=== PATIENT | male | born 1960 | race Caucasian/White ===

== ENCOUNTER 2018-08-08 15:50 | Inpatient (IN) ==
[2018-08-08] MEDS ORDERED: Aspirin 81 MG TAB.CHEW PO ONE (16:15)
--- NOTE | 2018-08-08 16:17 | Emergency Department Note ---
Disposition Clinical Impression: Acute inferior myocardial infarction ST elevation myocardial infarction (STEMI) Qualifiers: Involved coronary artery: LAD coronary artery Qualified Code(s): I21.02 - ST elevation (STEMI) myocardial infarction involving left anterior descending coronary artery Chest pain Qualifiers: Chest pain type: other chest pain Qualified Code(s): R07.89 - Other chest pain; R07.8 - Other chest pain Disposition: Admitted As Inpatient Condition: Fair Referrals: NONE,PCP [Primary Care Provider] - Forms: ED Satisfaction Letter Time of Disposition: 18:43 General Adult HPI - General Chief complaint: ED Chest Pain Stated complaint: Needs Pain Meds Time Seen by Provider: 08/08/18 16:11 Source: patient Limitations: no limitations Nursing Notes Reviewed: Yes Vital Signs Reviewed: Yes - History of Present Illness HPI Narrative: Male patient presenting to the emergency department complaining of jaw pain and chest pain. 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 He has a graft to this area. He is reporting that he has chest pain as well but he states that this is from his jaw pain. He states that this is the normal pain that he gets. He denies any shortness of breath. Patient reports that he has been out of his morphine because he got dismissed from the pain clinic. He states that he a ccidentally took an oxycodone instead of his morphine and tested positive for this. We did do a past Rx on the patient. It does appear as if he is supposed to have pain medication through August 16 or . He states he is out of this. He denies any shortness of breath. He reports that he thinks his pain is from his jaw. Patient denies any cardiac history. He does not take any blood thinners. He is a current smoker and does not have a history of high blood pressure. However he does have a history of a sister who had an [place] and had to be "shocked several times." He states that this happened a couple years ago and she is younger than he is. Pain Scale: 10 - Related Data Allergies Allergy/AdvReac Type Severity Reaction Status Date / Time No Known Allergies Allergy Verified 08/08/18 16:43 All systems ED: reviewed and negative except as stated. Review of Systems: As Per HPI Constitutional: Denies: fever, chills Eyes: Reports: other (Jaw pain. Has had this for 1 week.) ENT ED: Denies: congestion Cardiovascular: Reports: chest pain (One-week). Denies: palpitations, dyspnea on exertion, edema Respiratory: Denies: cough, dyspnea Gastrointestinal: Denies: abdominal pain, nausea, vomiting, diarrhea Genitourinary: Denies: urgency, dysuria, frequency, hematuria Musculoskeletal: Denies: back pain, neck pain Past Medical History - Past Medical History Attestation: Yes The following information was validated with the patient. Source: patient Medical history: Reports: cancer Psychiatric history: Reports: no psych history - Social History Smoking Status: Current every day smoker Alcohol use: Reports: none Drug use: Reports: none Physical Exam - General Limitations: no limitations General appearance: alert, in no apparent distress - Head Head exam: atraumatic, normocephalic, normal inspection - Eye Eye exam: Present: normal appearance, PERRL, EOMI - ENT ENT exam: mucous membranes moist, other (Deformity to the lower face secondary to surgery for throat cancer and partial mandible removal.) - Neck Neck exam: Present: other (Skin grafting to the throat secondary to throat cancer.) - Chest Chest inspection: Present: normal inspection, symmetric chest wall rise. Absent: tenderness - Respiratory Respiratory exam: Present: normal lung sounds bilaterally. Absent: respiratory distress, accessory muscle use - Cardiovascular Cardiovascular exam: Present: regular rate, normal rhythm, normal heart sounds - Abdominal Exam Abdominal exam: Present: soft, Non-Tender. Absent: tenderness, distention, guarding, rebound, rigidity, organomegaly - Extremities Exam Extremities exam: Present: normal inspection, full ROM, normal capillary refill. Absent: tenderness, pedal edema - Back Exam Back exam: Present: normal inspection, full ROM. Absent: tenderness - Neurological Exam Neurological exam: Present: alert, oriented X3 - Psychiatric Psychiatric exam: Present: normal affect, normal mood - Skin Skin exam: Present: warm, dry, intact, normal color Course Course Narrative: EKG was performed and patient was noted to have ST elevation in leads 23 and aVF We do not have a previous EKG to compare to. We did cause STEMI alert at that time. Patient was loaded with aspirin as well as Brilinta heparin. Dr. Hobson was contacted and is coming to bedside at this time. - Reevaluation(s) Reevaluation #1: Dr. Hobson evaluated the patient and discussed with him and they will be going to the Qa Manager. Vital Signs Temperature 98.4 F 08/08/18 15:57 Pulse Rate 80 08/08/18 15:57 Respiratory Rate 18 08/08/18 15:57 Blood Pressure 150/98 08/08/18 15:57 O2 Sat by Pulse Oximetry 97 08/08/18 15:57 Temperature 98.4 F 08/08/18 15:57 Pulse Rate 68 08/08/18 17:00 Respiratory Rate 16 08/08/18 17:00 Blood Pressure 137/87 08/08/18 17:05 O2 Sat by Pulse Oximetry 97 08/08/18 15:57 Oxygen Delivery Oxygen Delivery Room Air Medical Decision Making - Medical Records Medical records reviewed: Yes I reviewed the patient's medical records. - Lab Data Lab results reviewed: Yes I reviewed the patient's lab results. Result diagrams: 08/08/18 16:41 08/08/18 16:41 Lab Results 08/08/18 08/08/18 08/08/18 Range/Units 16:41 16:41 16:41 WBC 9.8 (4.3-11.1) K/mcL RBC 4.78 (4.19-5.50) M/mcL Hgb 14.2 (12.9-16.9) g/dL Hct 41.3 (37.5-50.1) % MCV 86.4 (83.0-100.0) fL MCH 29.7 (28.0-33.3) pg MCHC 34.4 (31.6-35.5) g/dL RDW 13.2 (11.5-14.5) % Plt Count 199 (140-400) K/mcL MPV 11.7 (9.4-12.4) fL Immature Gran % 0.2 (0-4) % Seg Neutrophils % 63.1 % Lymphocytes % 26.2 % Monocytes % 8.0 % Eosinophils % 1.4 % Basophils % 1.1 % Neutrophils # 6.2 (1.6-8.9) K/mcL Lymphocytes # 2.6 (0.6-4.6) K/mcL Monocytes # 0.8 (0.0-1.3) K/mcL Eosinophils # 0.1 (0.0-0.6) K/mcL Basophils # 0.1 (0.0-0.2) K/mcL PT 11.1 (9.4-12.1) Seconds INR 1.0 APTT 21.6 L (26.0-36.0) Seconds Sodium 138 (136-145) mEq/L Potassium 3.9 (3.5-5.1) mEq/L Chloride 104 (98-107) mEq/L Carbon Dioxide 27 (23-29) mEq/L BUN 6 (6-20) mg/dL Creatinine 1.01 (0.70-1.30) mg/dL Est GFR ( Amer) > 60 (> 60) Est GFR (Non-Af Amer) > 60 (> 60) BUN/Creatinine Ratio 6 (6-26) Glucose 71 (70-105) mg/dL Calculated Osmolality 282 (280-300) Calcium 9.5 (8.6-10.3) mg/dL Troponin I < 0.03 (< 0.04) ng/mL - Radiology Data Radiology results reviewed: Yes I reviewed the patient's radiology results. Chest X-Ray 08/08/18 16:16 IMPRESSION: Reticulonodular opacifications noted in both lungs. This may represent interstitial lung disease or possibly an atypical pneumonia. Otherwise, no acute abnormalities seen in the chest D/ / Víctor Morales MD / Víctor Morales MD Interpreting Provider: Víctor Morales MD Attestation Statement - Attestation Attestation: I, Krishna Hernandez DO, examined this patient [id number] and my medical decision-making was reviewed with Dr. Nathaly Kim, Resident Physician. I agree with the documented findings, disposition and treatment plan as described except to the extent set forth below. Please see my progress notes for details.
[2018-08-08] MEDS ORDERED: *HR* HYDROmorphone (PF) 1 MG/ML SYRINGE IVP STA (16:33)
[2018-08-08] MEDS ORDERED: *HR* Ticagrelor 90 MG TABLET PO ONE (16:34)
[2018-08-08] MEDS ORDERED: *HR* Heparin 5,000 UNIT/ML VIAL IVP ONE (16:34)
[2018-08-08] MEDS ORDERED: *HR* Heparin 5,000 UNIT/ML VIAL IVP PRN ×2 (16:34)
[2018-08-08] MEDS ORDERED: Heparin 25,000 UNIT/500 ML D5W 25,000 UNIT/500 ML BAG IVC SCH (16:45)
[2018-08-08] MEDS ORDERED: ISOVUE-370 200 ML INFUS..BTL ONE (16:56)
[2018-08-08] MEDS ORDERED: 0.9 % Sodium Chloride 1,000 ML ONE ×2 (16:56→17:14)
[2018-08-08] MEDS ORDERED: Heparin 1,000 UNITS/500 mL 500 ML ONE (16:56)
[2018-08-08] MEDS ORDERED: *HR* Heparin 10,000 UNIT/10 ML VIAL ONE (16:56)
[2018-08-08] MEDS ORDERED: Nitroglycerin 1,000 MCG/10 ML VIAL IV ONE (16:56)
--- NOTE | 2018-08-08 17:08 | Cardiology Consult Note ---
Date of Encounter: 08/08/18 Time of Encounter: 17:06 Assessment and Plan (1) Acute inferior myocardial infarction Current Visit: Yes Status: Acute Inferior UT, chest pain resolved after pain meds, will proceed with an C. R/b/a d/w patient and he agrees. Discussion w patient/family: The assessment and plan as outlined above was discussed with the patient and/or family members who expressed understanding and agreement. All questions were answered. Thank you for involving us in the care of your patient. Please call with any questions. History of Present Illness Consult date: 08/08/18 Consult reason: Chest Pain Chief complaint: Chest Pain History of present illness: Mr. Bowers is a 58 year old male smoker with no significant CRF's except for smoking here with RSCP non radiating currently resolved after pain meds in the ED. Pain started in the ED and radiates to the chest. States his chest pain curr ently resolved. R/B/A d/w patient and he agrees to proceed. Past Med Surg Social Fam HX - Past Medical History Medical history: cancer Additional medical history: Trevin MARTINES Psychiatric history: no psych history - Social History Smoking Status: Current every day smoker Alcohol use: none Drug use: none Medications and Allergies Allergy/AdvReac Type Severity Reaction Status Date / Time No Known Allergies Allergy Verified 08/08/18 16:43 All Systems Review: The remainder of the systems were reviewed and are negative Physical Examination Vital Signs, Last 4 Hours Temp Pulse Resp BP Pulse Ox 08/08/18 17:00 68 16 121/85 08/08/18 16:55 125/81 08/08/18 16:52 74 11 105/82 08/08/18 15:57 98.4 F 80 18 150/98 97 General: Conversant, No Apparent Distress HEENT: Atraumatic, Normocephaly, Mucus Membranes Moist Neck: No JVD, Normal carotid pulses Cardiac: Reg Rate and Rhythm, Normal S1 and S2, No Murmur Lungs: Normal Breath Sounds, No Wheeze, Rales, Rhonchi Neuro: Alert and responsive, No focal deficits noted Abdomen: Soft, Non-Tender Skin: No rashes noted on visualized skin Musculoskeletal: No Chest Wall Tenderness Extremities: No Clubbing, No Cyanosis, No Edema, Normal Pulses Consult Discharge Plan - Plan
[2018-08-08 17:13] LABS: Basophils # 0.1 K/mcL (0.0-0.2); Basophils % 1.1 %; Eosinophils # 0.1 K/mcL (0.0-0.6); Eosinophils % 1.4 %; Hematocrit 41.3 % (37.5-50.1); Hemoglobin 14.2 g/dL (12.9-16.9); Immature Granulocytes % 0.2 % (0-4); Lymphocytes # 2.6 K/mcL (0.6-4.6); Lymphocytes % 26.2 %; Mean Corpuscular HGB Conc 34.4 g/dL (31.6-35.5); Mean Corpuscular Hemoglobin 29.7 pg (28.0-33.3); Mean Corpuscular Volume 86.4 fL (83.0-100.0); Mean Platelet Volume 11.7 fL (9.4-12.4); Monocytes # 0.8 K/mcL (0.0-1.3); Neutrophils # 6.2 K/mcL (1.6-8.9); Platelet Count 199 K/mcL (140-400); Red Blood Count 4.78 M/mcL (4.19-5.50); Red Cell Distribution Width 13.2 % (11.5-14.5); Segmented Neutrophils % 63.1 %
[2018-08-08] MEDS ORDERED: Tirofiban 12.5 MG/250ML 12.5 MG/250 ML BAG ONE (17:14)
[2018-08-08] MEDS ORDERED: *HR* Midazolam HCl 2 MG/2 ML VIAL ONE (17:14)
[2018-08-08] MEDS ORDERED: *HR* FentaNYL (PF) 100 MCG/2 ML VIAL ONE ×2 (17:14→18:28)
[2018-08-08 17:21] LABS: Prothrombin Time 11.1 Seconds (9.4-12.1)
[2018-08-08 17:24] LABS: Activated Partial Thrombo Time 21.6 Seconds (26.0-36.0)
--- NOTE | 2018-08-08 17:24 | Emergency Department Note ---
Disposition Clinical Impression: Acute inferior myocardial infarction, Chest pain Disposition: Admitted As Inpatient Condition: Fair Referrals: NONE,PCP [Non-Partnered Physician] - Forms: ED Satisfaction Letter Time of Disposition: 17:24 General Adult HPI - General Chief complaint: ED Chest Pain Stated complaint: Needs Pain Meds Time Seen by Provider: 08/08/18 16:11 Source: patient Limitations: no limitations - History of Present Illness Pain Scale: 10 - Related Data Allergies Allergy/AdvReac Type Severity Reaction Status Date / Time No Known Allergies Allergy Verified 08/08/18 16:43 Constitutional: Denies: fever, chills Eyes: Reports: other (Jaw pain. Has had this for 1 week.) ENT ED: Denies: congestion Cardiovascular: Reports: chest pain (One-week). Denies: palpitations, dyspnea on exertion, edema Respiratory: Denies: cough, dyspnea Gastrointestinal: Denies: abdominal pain, nausea, vomiting, diarrhea Genitourinary: Denies: urgency, dysuria, frequency, hematuria Musculoskeletal: Denies: back pain, neck pain Past Medical History - Past Medical History Medical history: Reports: cancer Psychiatric history: Reports: no psych history - Social History Smoking Status: Current every day smoker Alcohol use: Reports: none Drug use: Reports: none Physical Exam - General Limitations: no limitations General appearance: alert, in no apparent distress Course Vital Signs Temperature 98.4 F 08/08/18 15:57 Pulse Rate 80 08/08/18 15:57 Respiratory Rate 18 08/08/18 15:57 Blood Pressure 150/98 08/08/18 15:57 O2 Sat by Pulse Oximetry 97 08/08/18 15:57 Temperature 98.4 F 08/08/18 15:57 Pulse Rate 68 08/08/18 17:00 Respiratory Rate 16 08/08/18 17:00 Blood Pressure 137/87 08/08/18 17:05 O2 Sat by Pulse Oximetry 97 08/08/18 15:57 Oxygen Delivery Oxygen Delivery Room Air Medical Decision Making - Lab Data Result diagrams: 08/08/18 16:41 Lab Results 08/08/18 Range/Units 16:41 WBC 9.8 (4.3-11.1) K/mcL RBC 4.78 (4.19-5.50) M/mcL Hgb 14.2 (12.9-16.9) g/dL Hct 41.3 (37.5-50.1) % MCV 86.4 (83.0-100.0) fL MCH 29.7 (28.0-33.3) pg MCHC 34.4 (31.6-35.5) g/dL RDW 13.2 (11.5-14.5) % Plt Count 199 (140-400) K/mcL MPV 11.7 (9.4-12.4) fL Immature Gran % 0.2 (0-4) % Seg Neutrophils % 63.1 % Lymphocytes % 26.2 % Monocytes % 8.0 % Eosinophils % 1.4 % Basophils % 1.1 % Neutrophils # 6.2 (1.6-8.9) K/mcL Lymphocytes # 2.6 (0.6-4.6) K/mcL Monocytes # 0.8 (0.0-1.3) K/mcL Eosinophils # 0.1 (0.0-0.6) K/mcL Basophils # 0.1 (0.0-0.2) K/mcL Attestation Statement - Attestation Attestation: I, Krishna Hernandez DO, examined this patient [id number] and my medical decision-making was reviewed with Dr. Nathaly Kim, Resident Physician. I agree with the documented findings, disposition and treatment plan as described except to the extent set forth below. Please see my progress notes for details. 58-year-old male presents emergency room with complaint of chest pain. [facility] was needs pain medication. Patient has extensive surgical history secondary to throat cancer. He was chronically on morphine immediate release tablets 30 mg and 50 mg alternating throughout the day. His [place] [employer] reporting system review shows multiple prescriptions that should carry through to the middle of August. Patient says it is out of medications at this time. He is still describing chest pain radiates up into his neck. He says it is similar to his pain is on the past but is unable to be differentiated secondary to the presenting symptoms or complaints and his chronic medical issues. Initial EKG was concerning for inferior wall myocardial infarction with ST segment elevations in leads 23 aVF. He has no visible reciprocal changes at this time. Because of this a STEMI alert was called. The forest and conservation worker Dr. Hobson reviewed the EKG and evaluated the patient the bedside. He agreed and is taking the patient to the Plasma Processing Technician for evaluation. Patient had labs completed including coagulation studies. He is currently not on any blood thinners. Chest x-ray was resulted and shows no signs of widening of the mediastinum or pneumothorax. Patient will be transferred to catheterization lab for intervention and medical management. He was given 1 dose of Dilaudid here in the emergency department that relieved his pain. Unable to differentiate between stress-induced related issues secondary to the opiate issues versus actual cardiac angina. Patient will have intervention performed admission process will be established. See detailed documentation of the physical exam, medical intervention, medical decision- making and disposition the resident physician's note. 35 minutes critical care pad the patient's treatment course at this time. Physical exam on initial presentation shows a thin appearing gentleman with surgical scars in the neck an d resection of the jaw. He has no stridor no trismus. Lungs were clear this time with expiratory wheeze noted. Otherwise stable. Heart is regular. Abdomen is soft. Extremities were normal.
[2018-08-08 17:34] LABS: Troponin I < 0.03 ng/mL (< 0.04)
[2018-08-08 17:37] LABS: BUN/Creatinine Ratio 6 (6-26); Blood Urea Nitrogen 6 mg/dL (6-20); Calcium 9.5 mg/dL (8.6-10.3); Carbon Dioxide 27 mEq/L (23-29); Chloride 104 mEq/L (98-107); Glucose 71 mg/dL (70-105); Osmolality,Calculated 282 (280-300); Potassium 3.9 mEq/L (3.5-5.1); Sodium 138 mEq/L (136-145); eGFR For Non-African Americans > 60 (> 60)
[2018-08-08] MEDS ORDERED: Tirofiban 5 MG/100 mL 5 MG/100 ML VIAL IV ONE (18:39)
--- NOTE | 2018-08-08 19:46 | Internal Med History&Physical ---
<Claudia Arriaga A - Last Filed: 08/09/18 06:39> Date of Encounter: 08/09/18 Internal Medicine - H&P: HPI Chief complaint: Chest Pain History of present illness: Mr. Bowers is a 58 year old male Internal Medicine - H&P: Meds Allergy/AdvReac Type Severity Reaction Status Date / Time No Known Allergies Allergy Verified 08/08/18 16:43 All Systems PM: A 10-system review of systems was performed and is negative for pertinent findings except as documented above in the HPI. - Constitutional Vitals: Temp Pulse Resp BP Pulse Ox 98.4 F 49 12 108/54 99 08/09/18 03:00 08/09/18 06:00 08/09/18 06:00 08/09/18 06:00 08/09/18 06:00 Internal Med - H&P Results - Labs CBC & Chem 7: 08/09/18 03:10 08/09/18 03:10 Labs: Short CBC 08/08/18 08/08/18 08/09/18 Range/Units 16:41 22:20 03:10 WBC 9.8 12.9 H 10.7 (4.3-11.1) K/mcL Hgb 14.2 13.4 12.8 L (12.9-16.9) g/dL Hct 41.3 38.0 37.9 (37.5-50.1) % Plt Count 199 191 180 (140-400) K/mcL Neutrophils # 6.2 8.1 8.2 (1.6-8.9) K/mcL BMP 08/08/18 08/08/18 08/09/18 16:41 22:20 03:10 Sodium 138 138 138 Potassium 3.9 3.8 3.8 Chloride 104 107 107 Carbon Dioxide 27 24 25 BUN 6 8 9 Creatinine 1.01 0.87 0.85 Glucose 71 118 H 121 H Calcium 9.5 8.2 L 7.9 L Cardiac Enzymes 08/08/18 08/08/18 08/09/18 Range/Units 16:41 22:20 04:15 Troponin I < 0.03 < 0.03 0.06 H* (< 0.04) ng/mL Liver Function 08/09/18 Range/Units 03:10 Total Bilirubin 0.5 (0.3-1.0) mg/dL AST 16 (13-39) Units/L ALT 11 (7-52) Units/L Alkaline Phosphatase 56 (34-104) Units/L Albumin 3.5 (3.5-5.7) g/dL - Impressions ITS Impressions Chest X-Ray 08/08/18 16:16 IMPRESSION: Reticulonodular opacifications noted in both lungs. This may represent interstitial lung disease or possibly an atypical pneumonia. Otherwise, no acute abnormalities seen in the chest D/ / Víctor Morales MD / Víctor Morales MD Interpreting Provider: Víctor Morales MD - Assessment and plan (1) Acute inferior myocardial infarction Current Visit: Yes Status: Acute (2) Throat cancer Current Visit: Yes Status: Acute (3) DVT prophylaxis Current Visit: Yes Status: Acute - Time Spent With Patient Total time spent is greater than 50% in coordination of care (as documented) at patient's floor/unit and/or counseling patient: - Attending Attestation I performed a Hx and Physical examination of the patient and discussed his management with the resident. I reviewed the rsidents note and agree with the assessment and plan of care. 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 Intial troponin was negative, but patient had EKG findings concerning for inferior wall NE. Dr. Hobson was informed who reviewed the case and patient was taken to the radiographer cardiac catheterization with findings of a RCA lesion with 65-70% occlusion. No stent was placed. Patient was doing well after arriving to the ICU. About 45 minutes after arrival, patient's blood pressure began dropping down into the 50 systolic. He became bradycardic. Patient was given 0.5 of atropine and fluid bolus. He was subsequently started on dopamine drip. Pressures gradually improved as well as heart rate. Arterial line was placed at the side of the femoral sheath. Patient reported chest pain at this time and need to have a bowel movement. Repeat EKG showed no significant changes from prior. Stat blood work was obtained. Blood pressures gradually improved and are now in the high 90s systolic. Dr. Hobson was informed. Patient stable now on 5 ml of dopamine. <Asher Pimentel - Last Filed: 08/09/18 07:05> Date of Encounter: 08/09/18 Time of Encounter: 20:00 Internal Medicine - H&P: HPI History of present illness: Mr. Bowers is a 58 year old smoker male who presented to the ED because of chest pain. In the ED patient described the chest pain as radiating to his neck. Initial workup was concerning for inferior wall NE with ST segment elevations in II, III and aVF. Patient had no reciprocal changes that time and the STEMI alert was called and patient underwent cardiac catheterization with Dr. Hobson. He was given Dilaudid in the ED and his chest pain resolved. Patient's chest x-rays were negative for any widening of mediastinum or pneumothorax. Patient is currently not on any blood thinners. Patient has a family history of heart disease in her mother's side but he is not sure what exactly was her mother's heart condition. Patient has extensive surgical histor y secondary to throat cancer and takes morphine immediate release tablets 30 mg to 50 mg alternating throughout the day. Patient's results from a cardiac catheterization tonight showed that the patient had 70% blockage in his RCA. No stent placement was recommended, Ticargrelor was started and patient was sent to ICU for further management. Past Med Surg Social Fam HX - Past Medical History Medical history: cancer Additional medical history: Jawbone CA Psychiatric history: no psych history - Social History Smoking Status: Current every day smoker Alcohol use: none Drug use: none All Systems PM: A 10-system review of systems was performed and is negative for pertinent findings except as documented above in the HPI. - Constitutional Constitutional: no fever(s) - Cardiovascular Cardiovascular ROS IM: chest pain - Respiratory Respiratory: no dyspnea - Gastrointestinal Gastrointestinal: no abdominal pain - Genitourinary Genitourinary ROS male: no difficulty urinating - Constitutional Vitals: Temp Pulse Resp BP Pulse Ox 98.4 F 68 16 137/87 97 08/08/18 15:57 08/08/18 17:00 08/08/18 17:00 08/08/18 17:05 08/08/18 15:57 Exam: Gen.: Vitals noted. No acute distress. Alert, awake and oriented * [address], place, and time, well developed, well-nourished resting comfortably in bed. Pleasant. HEENT: oropharynx clear, Normocephalic, atraumatic, MMM Neck: supple, no JVD, no lymphadenopathy, no carotid bruit. Cardiac: RRR, no murmur, +S1/S2, No BLE edema, PMI non-displaced Pulmonary: CTA bilaterally, no wheezes, rales or rhonchi, equal chest expansion, unlabored breathing Abdomen: soft, nontender, BS noted, no guarding. No organomegaly, no pulsatile masses, Skin: warm and dry, no visible lesions. Feels warm, clammy, no rashes, no lesions, no erythema MSK: ROM not assessed. no joint swelling noted, gait not assessed while in bed. Non tender calf or clubbing, no cyanosis/clubbing/ or edema Neuro: A&O, moves all extremities, no focal deficits, sensation intact Psych: Appropriate mood and behavior, normal speech Internal Med - H&P Results - Labs CBC & Chem 7: 08/09/18 03:10 08/09/18 03:10 Labs: Short CBC 08/08/18 Range/Units 16:41 WBC 9.8 (4.3-11.1) K/mcL Hgb 14.2 (12.9-16.9) g/dL Hct 41.3 (37.5-50.1) % Plt Count 199 (140-400) K/mcL Neutrophils # 6.2 (1.6-8.9) K/mcL BMP 08/08/18 16:41 Sodium 138 Potassium 3.9 Chloride 104 Carbon Dioxide 27 BUN 6 Creatinine 1.01 Glucose 71 Calcium 9.5 Cardiac Enzymes 08/08/18 Range/Units 16:41 Troponin I < 0.03 (< 0.04) ng/mL - Impressions ITS Impressions Chest X-Ray 08/08/18 16:16 IMPRESSION: Reticulonodular opacifications noted in both lungs. This may represent interstitial lung disease or possibly an atypical pneumonia. Otherwise, no acute abnormalities seen in the chest D/ / Víctor Morales MD / Víctor Morales MD Interpreting Provider: Víctor Morales MD - Assessment and plan (1) Acute inferior myocardial infarction Current Visit: Yes Status: Acute Assessment and plan: Patient's EKG showed evidence of ST-T changes and II, III and aVF with concerns for inferior NE, patient's chest pain resolved with pain medications. Due to the ST-T changes patient was taken for a cardiac catheterization , perhaps 70% blockage and RCA and a 60 % blockage in diagonal branch. No recommendations for stent placement at this point patient is on Ticagrelor for blood thinning (2) Throat cancer Current Visit: Yes Status: Acute Assessment and plan: Patient has a Hx of for throat cancer diagnosed in 2008. He underwent recent chemotherapy that back then currently he is in remission and follows up with his oncologist at [facility] once every 3 months. Patient takes morphine 30 mg alternating with 50 mg for pain control. In the ICU setting patient will be on the same pain medications regimen along with 10 mg immediate release morphine sulfate for breakthrough pain. (3) DVT prophylaxis Current Visit: Yes Status: Acute Assessment and plan: on ticagreor currently - Time Spent With Patient Total time spent is greater than 50% in coordination of care (as documented) at patient's floor/unit and/or counseling patient:
[2018-08-08] MEDS ORDERED: *HR* OxyCODONE Immed Rel 5 MG TABLET PO PRN (20:17)
[2018-08-08] MEDS ORDERED: *HR* Morphine Sulfate SR (12 HR) 30 MG TABLET.ER PO SCH (22:00)
[2018-08-08] MEDS ORDERED: Naloxone 0.4 MG/ML INJ ONE (22:08)
[2018-08-08] MEDS ORDERED: 0.9 % Sodium Chloride 500 ML ONE (22:12)
[2018-08-08] MEDS ORDERED: Ondansetron 4 MG/2 ML VIAL ONE (22:18)
[2018-08-08] MEDS ORDERED: Naloxone 0.4 MG/ML INJ IVP PRN ×2 (22:36→22:38)
[2018-08-08 22:39] LABS: Basophils # 0.1 K/mcL (0.0-0.2); Eosinophils # 0.2 K/mcL (0.0-0.6); Eosinophils % 1.2 %; Hemoglobin 13.4 g/dL (12.9-16.9); Immature Granulocytes % 0.3 % (0-4); Lymphocytes # 3.7 K/mcL (0.6-4.6); Lymphocytes % 28.4 %; Mean Corpuscular HGB Conc 35.3 g/dL (31.6-35.5); Mean Corpuscular Hemoglobin 29.9 pg (28.0-33.3); Mean Corpuscular Volume 84.8 fL (83.0-100.0); Mean Platelet Volume 11.4 fL (9.4-12.4); Monocytes # 0.8 K/mcL (0.0-1.3); Monocytes % 6.1 %; Neutrophils # 8.1 K/mcL (1.6-8.9); Platelet Count 191 K/mcL (140-400); Red Blood Count 4.48 M/mcL (4.19-5.50); Red Cell Distribution Width 13.2 % (11.5-14.5)
[2018-08-08] MEDS ORDERED: *HR* Morphine 2 MG/ML SYRINGE IVP PRN (22:41)
[2018-08-08 22:56] LABS: INR 1.1; Prothrombin Time 11.9 Seconds (9.4-12.1)
[2018-08-08 22:58] LABS: BUN/Creatinine Ratio 9 (6-26); Blood Urea Nitrogen 8 mg/dL (6-20); Calcium 8.2 mg/dL (8.6-10.3); Carbon Dioxide 24 mEq/L (23-29); Chloride 107 mEq/L (98-107); Glucose 118 mg/dL (70-105); Magnesium 1.9 mg/dL (1.6-2.6); Osmolality,Calculated 285 (280-300); Phosphorous 2.5 mg/dL (2.7-4.5); Potassium 3.8 mEq/L (3.5-5.1); Sodium 138 mEq/L (136-145); eGFR For Non-African Americans > 60 (> 60)
[2018-08-08] MEDS ORDERED: Naloxone 0.4 MG/ML INJ IVP ONE (23:01)
[2018-08-08] MEDS ORDERED: 0.9 % Sodium Chloride 1,000 ML IVC ONE (23:01)
[2018-08-08] MEDS ORDERED: Ondansetron 4 MG/2 ML VIAL IVP ONE (23:02)
[2018-08-09] MEDS ORDERED: *HR* OxyCODONE Immed Rel 15 MG TABLET PO SCH
[2018-08-09] MEDS ORDERED: *HR* Morphine Immed Rel 30 MG TABLET PO SCH
[2018-08-09] MEDS ORDERED: 0.9 % Sodium Chloride 1,000 ML IVC SCH (02:00)
[2018-08-09] MEDS: Nicotine 21 MG PATCH.TD24 TD SCH (02:46)
[2018-08-09] MEDS: Ketorolac 15 MG/ML VIAL IVP PRN ×4 (02:46→23:22)
--- NOTE | 2018-08-09 02:57 | Invasive Diagnostic Lab Proc ---
Name: Lester Bowers Date of Study: 08/08/2018 Date: 1960 Ht: 74.0in Medical Record#: [id number] Age: 58 Wt: 160.94lb Gender: Male BSA: 1.98 Order #: [id number] BMI: 20.66 Physicians Procedure Physician: Checo Hobson MD Referring MD: Referring MD: Staff Name Position Time In LakhwinderJina odom RN Monitor 05:18 PM Ernesto Brower RN Director Of Corporate Sponsorships 05:18 PM Matilde Randhawa RT Scrub 05:18 PM Indications Indication STEMI Procedures Performed Procedure L HRT ARTERY/VENTRICLE ANGIO Pre-Procedure Checklist Informed consent is complete signed and on chart. H&P is on chart. ID band is on and ID verified with patient. Patient NPO for procedure The procedure was described for the patient and questions were answered. Blood Pressure: 146/90 ECG is on chart. Rhythm: Sinus Bradycardia Plan of Care Patient will tolerate the procedure without complications. Adequate level of comfort will be maintained. Hemodynamics will remain stable Patient will recover from procedure without complications. Respiratory function will be maintained. Cardiac rhythm will remain stable. Patient temperature will be maintained. Patient and/or family have verbalized understanding of the procedure. Patient Education Chief Complaint/Reason for Test: Cardiac Cath Developmental Category: Adult (18-64 years) Developmentally Appropriate for Age: Yes Learning Barriers: None Education Needs: Procedure Education Method: Verbal Information Taught: Cardiac Cath Educational Evaluation: Able to repeat information Intravenous Access Time IV Size Location DC'd Fluid/Drip Rate Units RN 05:15 PM 18g 1 1/4" Patent On Arrival Lt Antecubital 0.9NaCl 25 05:15 PM 18g 1 1/4" Patent On Arrival Rt Antecubital Allergies No Known Allergies Vital Signs Time BP (mmHg) HR (bpm) O2 Sat. RR (bpm) LOC 05:19 PM / % 5 = Fully awake and oriented or at pre-proc level 05:19 PM / % 4 = Oriented but drowsy 05:17 PM 146 / 90 57 96 % 10 05:22 PM 134 / 79 57 98 % 16 05:27 PM 128 / 81 67 97 % 17 05:32 PM 128 / 75 65 99 % 16 05:37 PM 129 / 72 66 98 % 17 05:42 PM 126 / 81 65 98 % 18 05:34 PM / % 4 = Oriented but drowsy 06:11 PM 138 / 92 57 94 % 16 5 = Fully awake and oriented or at pre-proc level 06:30 PM 156 / 95 58 94 % 16 5 = Fully awake and oriented or at pre-proc level 06:45 PM 128 / 81 66 93 % 16 5 = Fully awake and oriented or at pre-proc level 07:00 PM 143 / 92 56 94 % 15 5 = Fully awake and oriented or at pre-proc level 07:15 PM 124 / 87 59 94 % 16 5 = Fully awake and oriented or at pre-proc level Procedural Medications Time Medication Dose Units Method Given By 05:19 PM Oxygen 2 L/min nasal cannula Ernesto Brower RN 05:19 PM Lidocaine 2% 17 ml Subcutaneous Checo Hobson MD 05:19 PM Versed 0.5 mg Intravenous Ernesto Brower RN 05:19 PM Fentanyl 25 mcg Intravenous Ernesto Brower RN 05:25 PM Heparin 500 units Intravenous Ernesto Brower RN 05:25 PM Aggrastat Bolus: 37.5 ml Intravenous Ernesto Brower RN 05:25 PM Aggrastat 12.5mg/250ml 13.5 ml/hr Intravenous Ernesto Brower RN 06:33 PM Fentanyl 25 mcg Intravenous Ernesto Brower RN ASA Classification: CLASS II- Mild systemic disease (i.e. well-controlled diabetes, hypertension, asthma, cigarette smoking) Emergent Procedure: ASA score is assumed Renaldo Score Preprocedure Postprocedure Activity 2- Moves 4 extremities sustained head lift Activity 2- Moves 4 extremities sustained head lift Circulation 2- SBP +/= 20 points of pre-anesthetic level Circulation 2- SBP +/= 20 points of pre-anesthetic level Consciousness 2- Awake and alert oriented x 3 Consciousness 2- Awake and alert oriented x 3 O2 Saturation 2- Able to maintain O2 satruation of 92% on room air O2 Saturation 2- Able to maintain O2 satruation of 92% on room air Respiratory 2- Able to deep breathe and cough well Respiratory 2- Able to deep breathe and cough well Total Score 10 Total Score 10 Contrast Agent: Isovue Diagnostic Contrast: 135 ml Total Contrast: 135 ml Fluoro Dose: 6825 mGy Activated Clotting Time Time Seconds to Clot 05:24 PM 213 05:50 PM 216 07:16 PM 180 Procedure Log Time Note Enter By 05:11 PM Pt arrived to laboratory animal caretaker 2 at 17:11 cedwards 05:16 PM Vitals capture started with the following parameters, Patient=Adult, Interval=5 min, Initial Auxjgkfa=583 mmHg, Deflation Rate=5 mmHg, Cuff placed on Right Arm 05:17 PM HR=57 bpm, XDCD=133/90 mmhg, SpO2=96.0 %, Resp=10 B/min, Comment=sb 05:17 PM Patient charges- Angio tray pack, Navilyst 3mm J, Pulse Oximetry and ACIST tubing and transducer cedwards 05:17 PM Physician arrived 17:17 cedwards 05:17 PM Meet and greet completed cedwards 05:17 PM Sign in performed according to hospital policy. Informed consent was obtained. cedwards 05:17 PM Procedure start 17:17 cedwards 05:18 PM Time out was performed according to hospital policy. Conscious sedation and anesthesia was achieved (see medication log with in this report above) cedwards 05:18 PM Jina Keane RN Position: Monitor Time in: 17:18 cedwards 05:18 PM Ernesto Brower RN Position: Director Of Corporate Sponsorships Time in: :18 cedwards 05:18 PM Matilde Randhawa Position: Scrub Time in: 17:18 cedwards 05:18 PM Case Delayed no, inpatient cedwards 05:18 PM Hair removed from procedure site in procedure lab using clippers. Bilateral groin prepped with Chloraprep by Jina Keane RN, then patient was draped. Skin intact. cedwards 05:19 PM Time: 17:19 Patient comfortable and pain free: Yes cedwards 05:19 PM Time: 17:19LOC: 5 = Fully awake and oriented or at pre-proc level cedwards 05: PM Time: 17:19 Oxygen on at 2 L/min per nasal cannula by Ernesto Brower RN cedwards 05:19 PM Time: 17:19 17 ml Lidocaine 2% to right groin Subcutaneous Given by Checo Hobson MD cedwards 05:19 PM Time: 17:19 Versed 0.5 mg Intravenous Given by Ernesto Brower RN cedwards 05:19 PM Time: 17:19 Fentanyl 25 mcg Intravenous Given by Ernesto Brower RN cedwards 05:19 PM Micro-Introducer Kit utilized for sheath placement cedwards 05:20 PM Pressure channel 1 zeroed. 05:20 PM CathStat 05:21 PM Access obtained by percutaneous puncture. 6Fr 11cm Terumo [place] sheath placed in right Femoral artery. [id number] cedwards 05:21 PM 6Fr JR 4 [place] Bright-Tip guide catheter was used to cannulate the PCI vessel successfully. reused? No cedwards 05:22 PM HR=57 bpm, KPPQ=657/79 mmhg, SpO2=98.0 %, Resp=16 B/min 05:22 PM Recorded Pressure: Ao, HR=57, Condition=Condition 1 (Aorta) Ao 114/69/88 05:23 PM RCA angiography performed in multiple views. cedwards 05:24 PM Recorded Pressure: Ao, HR=67, Condition=Condition 1 (Aorta) Ao 117/74/93 05:24 PM At 17:24 the ACT was 213 seconds. cedwards 05:24 PM Reference ECG taken 05:25 PM Time: 17:25 Heparin 500 units Intravenous Given by Ernesto Brower RN cedwards 05:25 PM Time: 17:25 Aggrastat Bolus: 37.5 ml Intravenous Given by Ernesto Brower RN Brandon pump cedwards 05:25 PM Time: 17:25 Aggrastat 12.5mg/250ml 13.5 ml/hr Intravenous Given by Ernesto Brower RN Brandon pump cedwards 05:25 PM Coronary Dominance: right cedwards 05:27 PM .014 [employer] [place] 190cm guide wire across target lesion- successful. reused? No cedwards 05:27 PM HR=67 bpm, TVCY=099/81 mmhg, SpO2=97.0 %, Resp=17 B/min, Comment=sb 05:31 PM Lesion found in Proximal RCA. Pre Stenosis: 65 Pre BRIDGET Flow: 3: Complete and Brisk Flow/Perfusion cedwards 05:32 PM HR=65 bpm, HRBA=669/75 mmhg, SpO2=99.0 %, Resp=16 B/min, Comment=sb 05:33 PM Guide wire removed intact. cedwards 05:33 PM Guide catheter removed intact. cedwards 05:33 PM 5Fr FL 4 catheter inserted over the wire [facility] cedwards 05:33 PM LCA angiography performed in multiple views. cedwards 05:34 PM Recorded Pressure: Ao, HR=70, Condition=Condition 1 (Aorta) Ao 125/78/98 05:34 PM Time: 17:19LOC: 4 = Oriented but drowsy cedwards 05:34 PM Time: 17:19 Patient comfortable and pain free: Yes cedwards 05:35 PM Recorded Pressure: Ao, HR=65, Condition=Condition 1 (Aorta) Ao 108/74/90 05:37 PM HR=66 bpm, LEUW=164/72 mmhg, SpO2=98.0 %, Resp=17 B/min, Comment=sb 05:37 PM Catheter removed cedwards 05:37 PM 5Fr Pigtail catheter inserted over the wire DNC cedwards 05:37 PM Recorded Pressure: LV, HR=67, Condition=Condition 1 (Left Ventricle) LV 102/19/20 05:38 PM Catheter crossed the aortic valve and was selectively placed in the left ventricle. Pressures recorded on pullback for left heart catheterization. cedwards 05:39 PM Bolus angiogram of left Ventricle complete: 10 ml/sec for a total of 20 mls cedwards 05:39 PM Recorded Pressure: LV, Ao, HR=65, Condition=Condition 1 (Left Ventricle) LV 116/5/10, (Aorta) Ao 114/66/89 05:39 PM Bolus angiogram of left Ventricle complete: 4 ml/sec for a total of 7 mls cedwards 05:40 PM Catheter removed cedwards 05:40 PM aggrastat off cedwards 05:40 PM 4mls of contrast hand injected cedwards 05:42 PM HR=65 bpm, BDKK=705/81 mmhg, SpO2=98 %, Resp=18 B/min 05:44 PM Procedure completed at 17:44 08/08/2018 cedwards 05:44 PM Did you address BRIDGET flow and Dominance? Yes cedwards 05:44 PM Sign out completed: Radiation Dose 657 mGy, 6825 cGy/cm2 Fluoro Time: 4.3 Isovue 370 - 200ml contrast 135 ml given by Checo Hobson MD. Complications: None. The patient was discharged out of the helper animal laboratory in stable condition. Cardiac Rehab Consult needed: NoConfirmed administered medications: Yes cedwards 05:49 PM Time: 17:34 Patient comfortable and pain free: Yes cedwards 05:49 PM Time: 17:34LOC: 4 = Oriented but drowsy cedwards 05:49 PM Isovue 370 - 200ml,1 Bottle(s) used. cedwards 05:50 PM Sheath left in place to be pulled on floor/holding area cedwards 05:50 PM At 17:50 the ACT was 216 seconds. cedwards 05:50 PM Estimated Blood Loss: minimal cedwards 05:50 PM Post ECG Sinus Bradycardia cedwards 05:50 PM Post Blood Pressure 138/92 cedwards 05:50 PM 17:50 Post Pulses Bilateral DP & PT 2+ cedwards 05:56 PM Information taught Cardiac Cath cedwards 05:56 PM Education needs Procedure, Plan of Care, and Responsibilities of Patient in Care cedwards 05:56 PM Learning barriers :None cedwards 05:56 PM Education Methods Verbal cedwards 05:56 PM Education evaluation Able to repeat information cedwards 05:59 PM Site status No bleeding/hematoma - Rt Groin as reported by Matilde Randhawa RT at 17:58 cedwards 05:59 PM Opsite applied cedwards 05:59 PM Plavix, Effient or Brilinta given given in ER cedwards 05:59 PM Delay to floor Bed availability cedwards 06:04 PM Patient out of room: 18:04 cedwards 06:05 PM Family placed in not here at this time. cedwards 06:05 PM Complications: None cedwards 06:08 PM Lesion found in Mid LAD. Pre Stenosis: 25 Pre BRIDGET Flow: cedwards 06:08 PM Lesion found in 1st Diagonal. Pre Stenosis: 60 Pre BRIDGET Flow: cedwards 06:08 PM Sheath to be pulled with manual pressure in ICU when ACT is appropriate cedwards 06:09 PM pt taken to holding room d/t room in ICU being dirty cedwards 06:09 PM Mid/Distal Left Anterior Descending Coronary Artery and diagonal branches with 60% stenosis. If graft is supplying this area, 0 % stenosis cedwards 06:09 PM Right Coronary, Right Posterior Descending Arteries with Right Posterolateral and Acute Marginal branches with 65 % stenosis. If graft is supplying this area, 0 % stenosis cedwards 06:32 PM pt is having 9/10 jaw pain. related to his cancer. notified and 25mcg fentanyl ivx1 now ordered scoates 06:33 PM pt voided 250mls clear yellow urine scoates 06:33 PM Time: 18:33 Fentanyl 25 mcg Intravenous Given by Ernesto Brower RN scoates 07:16 PM At 19:16 the ACT was 180 seconds. scoates 07:25 PM Report given to Sugar ALEJANDRA Pt taken to ICU Room #5. 19:25 cedwards 07:26 PM patient and family taken to ICU room 5 cedwards Complications Complication None None Hemodynamics Pressures Site Systolic/A Wave Diastolic/V Wave Mean AO 114 69 88 AO 117 74 93 AO 125 78 98 AO 108 74 90 LV 102 19 20 LV 116 5 10 AO 114 66 89 Post Procedure Information Blood Pressure: 138/92 mmHg Rhythm: Sinus Bradycardia Post procedural instructions were given Closure Device Time Device Success/Fail 08/08/2018 6:07:00 PM Mechanical Compression - sheath to be pulled in ICU when appropriate Site Checks Time Location Status Staff Sheath In? Note 05:58 PM Rt Groin No bleeding/hematoma Matilde Randhawa RT Yes 06:11 PM Rt Groin No bleeding/ No Hematoma Matilde Randhawa RT Yes 06:30 PM Rt Groin No bleeding/ No Hematoma Lakhwinder, Jina ALEJANDRA Yes 06:45 PM Rt Groin No bleeding/ No Hematoma Lakhwinder, Jina ALEJANDRA Yes 07:00 PM Rt Groin No bleeding/ No Hematoma Lakhwinder, Jina ALEJANDRA Yes 07:15 PM Rt Groin No bleeding/ No Hematoma Lakhwinder, Jina ALEJANDRA Yes Pulses Time Site Pre-Procedure Post-Procedure Note 5:50:00 PM Bilateral DP & PT 2+ 08/08/2018 5:16:00 PM Bilateral DP & PT 2+ 08/08/2018 6:11:00 PM Bilateral DP & PT 2+ Updated by Ernesto Brower RN on 08/09/2018 2:46:05 AM electronically signed on 08/09/2018 2:46:31 AM with status of Final
[2018-08-09 03:19] LABS: Basophils # 0.1 K/mcL (0.0-0.2); Eosinophils # 0.1 K/mcL (0.0-0.6); Hematocrit 37.9 % (37.5-50.1); Hemoglobin 12.8 g/dL (12.9-16.9); Immature Granulocytes % 0.2 % (0-4); Lymphocytes # 1.6 K/mcL (0.6-4.6); Lymphocytes % 15.2 %; Mean Corpuscular HGB Conc 33.8 g/dL (31.6-35.5); Mean Corpuscular Hemoglobin 29.3 pg (28.0-33.3); Mean Corpuscular Volume 86.7 fL (83.0-100.0); Mean Platelet Volume 11.3 fL (9.4-12.4); Monocytes # 0.6 K/mcL (0.0-1.3); Monocytes % 5.7 %; Neutrophils # 8.2 K/mcL (1.6-8.9); Platelet Count 180 K/mcL (140-400); Red Blood Count 4.37 M/mcL (4.19-5.50); Red Cell Distribution Width 13.3 % (11.5-14.5); Segmented Neutrophils % 76.9 %
[2018-08-09 03:26] LABS: Prothrombin Time 11.8 Seconds (9.4-12.1)
[2018-08-09 03:45] LABS: Alanine Aminotransferase 11 Units/L (7-52); Albumin 3.5 g/dL (3.5-5.7); Albumin/Globulin Ratio 1.5 (1.1-2.2); Alkaline Phosphatase 56 Units/L (34-104); Aspartate Amino Transferase 16 Units/L (13-39); BUN/Creatinine Ratio 11 (6-26); Bilirubin,Total 0.5 mg/dL (0.3-1.0); Blood Urea Nitrogen 9 mg/dL (6-20); Calcium 7.9 mg/dL (8.6-10.3); Carbon Dioxide 25 mEq/L (23-29); Chloride 107 mEq/L (98-107); Globulin 2.4 g/dL (2.4-3.5); Glucose 121 mg/dL (70-105); Magnesium 1.9 mg/dL (1.6-2.6); Osmolality,Calculated 286 (280-300); Potassium 3.8 mEq/L (3.5-5.1); Sodium 138 mEq/L (136-145); Total Protein 5.9 g/dL (6.4-8.9); eGFR For Non-African Americans > 60 (> 60)
[2018-08-09] MEDS ORDERED: *HR* Morphine Sulfate SR (12 HR) 30 MG TABLET.ER PO SCH (06:00)
[2018-08-09] MEDS: Aspirin Enteric Coated 81 MG Tablet PO SCH (08:31)
[2018-08-09] MEDS ORDERED: *HR* Atropine Sulfate 1 MG/10 ML SYRINGE ONE (12:04)
--- NOTE | 2018-08-09 12:22 | Cardiology Progress Note ---
Date of Encounter: 08/09/18 Time of Encounter: 12:20 Assessment and Plan (1) CAD (coronary artery disease) Current Visit: Yes Status: Acute Concern for STEMI criteria on ECG, taken to lab support technician evening of 08/08. Reported 70% RCA lesion, no intervention with medical management recommended. Continue ASA, Statin. No BB currently due to bradycardia and hypotension. TTE EF preserved. Mild AR. Became bradycardic and hypotensive after return from lab support technician. Currently on dopamine at 5mcg/kg/min. Attempted to wean down this AM and became hypotensive. Continue to follow until weaned. Instructed to remove sheath. Qualifiers: Coronary Disease-Associated Artery/Lesion type: [place] artery [place] vs. transplanted heart: [place] heart Associated angina: angina presence unspecifie d Qualified Code(s): I25.10 - Atherosclerotic heart disease of [place] coronary artery without angina pectoris (2) Chest pain Current Visit: Yes Status: Acute As above, LHC yesterday without intervention, reportedly 70% RCA lesion--final report pending. Continue ASA and Statin. No BB due to hypotension and bradycardia. Qualifiers: Chest pain type: unspecified Qualified Code(s): R07.9 - Chest pain, unspecified (3) Bradycardia Current Visit: Yes Status: Acute 12 hr tele AVG HR 51. On Dopamine at 5mcg/kg/min. Obtain ECG. Attempt to wean dopamine as BP and HR tolerate. K, Mag WNL. Check TSH. Discussion w patient/family: The assessment and plan as outlined above was discussed with the patient and/or family members who expressed understanding and agreement. All questions were answered. Thank you for involving us in the care of your patient. Please call with any questions. I will discuss all the above with Dr. Galvan and make changes as necessary. Subjective Principal diagnosis: Chest pain, hypotension, bradycardia Interval history: Taken to lab support technician yesterday evening due to concerns of STEMI on ECG. 70% RCA lesion noted, no intervention. Medical management was recommended. Pt became hypotensive and bradycardic after requiring Dopamine gtt, currently at 5mcg/kg/min. TTE EF preserved. Denies chest pain. Objective Vital Signs, Last 4 Hours Temp Pulse Resp BP Pulse Ox 08/09/18 11:00 79 12 102/55 99 08/09/18 10:00 59 12 133/59 99 08/09/18 09:08 97.6 F Vital Signs Temp Pulse Pulse Resp BP Pulse Ox 08/09/18 11:00 79 12 102/55 99 08/09/18 10:00 59 12 133/59 99 08/09/18 09:08 97.6 F 08/09/18 08:00 97.6 F 51 46 12 106/54 99 08/09/18 07:00 42 12 92/44 99 08/09/18 06:00 49 12 108/54 99 08/09/18 05:00 42 12 100/47 99 08/09/18 04:00 46 18 112/53 99 08/09/18 03:16 46 08/09/18 03:14 46 46 13 95/52 97 08/09/18 03:00 98.4 F 42 13 95/52 97 08/09/18 02:00 53 12 96/50 97 08/09/18 01:00 56 14 110/52 97 08/09/18 00:00 98.4 F 48 14 110/50 97 08/08/18 23:09 56 56 14 96/50 96 08/08/18 23:07 55 08/08/18 23:00 54 14 96/50 97 08/08/18 22:00 50 14 67/38 98 08/08/18 21:15 52 52 14 103/66 97 08/08/18 21:00 52 14 103/66 97 08/08/18 20:45 50 50 14 126/83 97 08/08/18 20:15 98.2 F 57 57 14 138/82 97 08/08/18 20:00 98.2 F 57 60 14 130/82 97 08/08/18 19:45 98.2 F 64 64 16 149/85 97 08/08/18 19:30 98.2 F 69 69 16 102/86 97 08/08/18 17:05 137/87 08/08/18 17:00 68 16 121/85 08/08/18 16:55 125/81 08/08/18 16:52 74 11 105/82 08/08/18 15:57 98.4 F 80 18 150/98 97 Intake and Output 08/08/18 08/09/18 08/09/18 23:59 07:59 15:59 Intake Total 5 / 5 240 / 240 Output Total 300 / 300 350 / 350 300 / 300 Balance -295 / -295 -350 / -350 -60 / -60 Intake: IV Fluids 5 / 5 DOPamine Premix 400mg/250mL 400 5 / 5 mg In 250 ml @ 5 MCG/KG/MIN 12 .975 mls/hr IVC .[id number] [facility] Rx #:[id number] Oral 0 / 0 240 / 240 Output: Urine 300 / 300 350 / 350 300 / 300 Other: Weight 69.2 kg Blood Glucose* 86 General: Conversant, No Apparent Distress HEENT: Atraumatic, Normocephaly, Mucus Membranes Moist Neck: No JVD, Normal carotid pulses Cardiac: Reg Rate and Rhythm, Normal S1 and S2, No Murmur Lungs: Normal Breath Sounds, No Wheeze, Rales, Rhonchi Neuro: Alert and responsive, No focal deficits noted Abdomen: Soft, Non-Tender Skin: No rashes noted on visualized skin Musculoskeletal: No Chest Wall Tenderness Extremities: No Clubbing, No Cyanosis, No Edema, Normal Pulses Results 08/09/18 03:10 08/09/18 03:10 Lab Results 08/08/18 08/08/18 08/08/18 16:41 16:41 16:41 WBC 9.8 Hgb 14.2 Hct 41.3 Plt Count 199 INR 1.0 APTT 21.6 L Sodium 138 Potassium 3.9 Chloride 104 Carbon Dioxide 27 BUN 6 Creatinine 1.01 Glucose 71 Calcium 9.5 Magnesium Total Bilirubin AST ALT Alkaline Phosphatase Troponin I < 0.03 08/08/18 08/08/18 08/08/18 22:20 22:20 22:20 WBC 12.9 H Hgb 13.4 Hct 38.0 Plt Count 191 INR 1.1 APTT Sodium 138 Potassium 3.8 Chloride 107 Carbon Dioxide 24 BUN 8 Creatinine 0.87 Glucose 118 H Calcium 8.2 L Magnesium 1.9 Total Bilirubin AST ALT Alkaline Phosphatase Troponin I 08/08/18 08/09/18 08/09/18 22:20 03:10 03:10 WBC 10.7 Hgb 12.8 L Hct 37.9 Plt Count 180 INR 1.0 APTT Sodium Potassium Chloride Carbon Dioxide BUN Creatinine Glucose Calcium Magnesium Total Bilirubin AST ALT Alkaline Phosphatase Troponin I < 0.03 08/09/18 08/09/18 08/09/18 03:10 04:15 10:22 WBC Hgb Hct Plt Count INR APTT Sodium 138 Potassium 3.8 Chloride 107 Carbon Dioxide 25 BUN 9 Creatinine 0.85 Glucose 121 H Calcium 7.9 L Magnesium 1.9 Total Bilirubin 0.5 AST 16 ALT 11 Alkaline Phosphatase 56 Troponin I 0.06 H* 0.10 H* Short CBC 08/09/18 08/08/18 08/08/18 Range/Units 03:10 22:20 16:41 WBC 10.7 12.9 H 9.8 (4.3-11.1) K/mcL Hgb 12.8 L 13.4 14.2 (12.9-16.9) g/dL Hct 37.9 38.0 41.3 (37.5-50.1) % Plt Count 180 191 199 (140-400) K/mcL Neutrophils # 8.2 8.1 6.2 (1.6-8.9) K/mcL BMP 08/09/18 08/08/18 08/08/18 Range/Units 03:10 22:20 16:41 Sodium 138 138 138 (136-145) mEq/L Potassium 3.8 3.8 3.9 (3.5-5.1) mEq/L Chloride 107 107 104 (98-107) mEq/L Carbon Dioxide 25 24 27 (23-29) mEq/L BUN 9 8 6 (6-20) mg/dL Creatinine 0.85 0.87 1.01 (0.70-1.30) mg/dL Glucose 121 H 118 H 71 (70-105) mg/dL Calcium 7.9 L 8.2 L 9.5 (8.6-10.3) mg/dL Cardiac Enzymes 08/09/18 08/09/18 08/08/18 Range/Units 10:22 04:15 22:20 Troponin I 0.10 H* 0.06 H* < 0.03 (< 0.04) ng/mL 08/08/18 Range/Units 16:41 Troponin I < 0.03 (< 0.04) ng/mL Liver Function 08/09/18 Range/Units 03:10 Total Bilirubin 0.5 (0.3-1.0) mg/dL AST 16 (13-39) Units/L ALT 11 (7-52) Units/L Alkaline Phosphatase 56 (34-104) Units/L Albumin 3.5 (3.5-5.7) g/dL Impressions Chest X-Ray 08/08/18 16:16 IMPRESSION: Reticulonodular opacifications noted in both lungs. This may represent interstitial lung disease or possibly an atypical pneumonia. Otherwise, no acute abnormalities seen in the chest D/ / Víctor Morales MD / Víctor Morales MD Interpreting Provider: Víctor Morales MD Echocardiogram 08/09/18 07:57 Impressions: LVEF 60%. Normal LV chamber size, wall thickness and function. Normal left ventricular diastolic function. Normal right ventricular structure and function. Mild aortic regurgitation. No evidence of pulmonary hypertension. Left Ventricular Wall Motion: Rest Echo Findings All wall segments showed normal motion. Findings: Study Quality * Technically adequate exam. ECG Findings * Sinus bradycardia. Left Ventricle * LVEF 60%. * Normal LV chamber size, wall thickness and function. * Normal left ventricular diastolic function. Right Ventricle * Normal right ventricular structure and function. Left Atrium * Normal left atrial size. Right Atrium * Normal right atrial size. Interatrial Septum * PFO with right to left shunt. Aortic Valve * Trileaflet aortic valve. * No aortic stenosis. * Normal aortic valve structure. * Mild aortic regurgitation. Mitral Valve * Normal mitral valve structure. * No mitral regurgitation. * No mitral stenosis. Tricuspid Valve * Normal tricuspid valve structure. * No tricuspid stenosis. * Trace tricuspid regurgitation. * No evidence of pulmonary hypertension. Pulmonic Valve * No pulmonic regurgitation. * Pulmonic valve not well visualized. Aorta * Normally sized aortic root. Pericardium * The pericardium appears normal. IVC * Normal IVC dimensions and inspiratory collapse. Active Medications Aspirin (Aspirin Ec) 81 mg PO DAILY DON Stop: 02/08/19 09:01 Last Admin: 08/09/18 08:31 Dose: 81 mg Atorvastatin Calcium (Lipitor) 80 mg PO HS [facility] Stop: 02/08/19 21:01 Heparin Sodium (Porcine) (Heparin) 4,000 unit IVP Q6HR PRN PRN Reason: SEE COMMENTS Stop: 02/07/19 16:35 Heparin Sodium (Porcine) (Heparin) 2,000 unit IVP Q6H PRN PRN Reason: SEE COMMENTS Stop: 02/07/19 16:35 Heparin Sodium/Dextrose (Heparin 25,000 Unit/500 Ml D5w) 25,000 unit in 500 mls @ 17.505 mls/hr IVC .Q24H DON; Protocol Stop: 02/07/19 16:46 Last Admin: 08/08/18 20:02 Dose: Not Given Dopamine HCl/Dextrose (Dopamine Premix 400mg/250ml) 400 mg in 250 mls @ 12.975 mls/hr IVC .[id number] DON; Protocol Stop: 02/07/19 23:16 Last Titration: 08/08/18 23:48 Dose: 5 mcg/kg/min, 12.975 mls/hr Sodium Chloride (0.9 % Sodium Chloride) 1,000 mls @ 75 mls/hr IVC .[id number] DON Stop: 02/08/19 02:01 Last Admin: 08/09/18 02:46 Dose: 75 mls/hr Ketorolac Tromethamine (Toradol) 15 mg IVP Q6HR PRN PRN Reason: Pain Stop: 08/14/18 02:24 Last Admin: 08/09/18 08:31 Dose: 15 mg Naloxone HCl (Narcan) 0.4 mg IVP Q2MIN PRN PRN Reason: SEE COMMENTS Stop: 02/07/19 22:39 Nicotine (Nicoderm) 21 mg TD Q24H DON; Protocol Stop: 02/08/19 02:34 Last Admin: 08/09/18 02:46 Dose: 21 mg - Imaging and Cardiology Echo: report reviewed - EKG Interpretation EKG results cardiology: other (12 hr tele AVG HR 50, appears SR) Consult Discharge Plan - Plan Referrals: NONE,PCP [Primary Care Provider] -
--- NOTE | 2018-08-09 12:39 | Internal Med Progress Note ---
Hospitalist Progress Note - Encounter Date of Encounter: 08/09/18 Time of Encounter: 10:45 - Subjective Interval History: H&P reviewed. 58-year-old male with history of mandibular cancer was initially admitted for the concern of inferior STEMI. Was taken to the clinical lab clerk last night, LHC showed 65% stenosis in RCA, 60% stenosis in LAD. Post procedurally, patient developed hypotension and bradycardia requiring dopamine gtt. No focal complaints other than jaw pain today. Denies any chest pain, cough, sputum production, abdominal pain, change in bowel habits, or dysuria. - Exam Vitals: Temp Pulse Resp BP Pulse Ox 97.6 F 79 12 102/55 99 08/09/18 09:08 08/09/18 11:00 08/09/18 11:00 08/09/18 11:00 08/09/18 11:00 Exam: General: Alert and oriented, not in acute distress. Cardiovascular:Normal S1 & S2, No JVD. Pulse regular. Lungs: diminished breath sound, unable to appreciate any rhonchi or wheeze Abdomen:Soft, non-tender, no rigidity. Extremities:No deformity or swelling Neurological:Normal cognition and motor skills. Non-focal - Assessment and Plan (1) Hypotension Current Visit: Yes Status: Acute Assessment and Plan: developed hypotension and bradycardia post-LHC yesterday unclear etiology ?related to sedatives required dopamine gtt overnight, try to wean off CXR reviewed: Bilateral reticulonodular opacifications which could represent ILD versus atypical pneumonia since we do not have a clear cause of hypotension, will treat it as infectious cause with azithromycin blood culture x2 prior to abx, strep/legionella ag urinalysis (2) Acute inferior myocardial infarction Current Visit: Yes Status: Resolved Assessment and Plan: was initially concerned for acute inferior STEMI [facility] report as above echo showed normal EF hep gtt d/dane elevated troponin likely related to [facility] yesterday. (3) CAD (coronary artery disease) Current Visit: Yes Status: Chronic Assessment and Plan: ASA, statin bb on hold due to hypotension and bradycardia echo as above (4) Throat cancer Current Visit: Yes Status: Chronic Assessment and Plan: resume home pain meds (5) DVT prophylaxis Current Visit: Yes Status: Acute Assessment and Plan: SQ heparin - Time Spent with Patient Total time spent is greater than 50% in coordination of care (as documented) at patient's floor/unit and/or counseling patient: Internal Medicine: Result - Labs CBC & Chem 7: 08/09/18 03:10 08/09/18 03:10 Labs: Short CBC 08/08/18 08/08/18 08/09/18 Range/Units 16:41 22:20 03:10 WBC 9.8 12.9 H 10.7 (4.3-11.1) K/mcL Hgb 14.2 13.4 12.8 L (12.9-16.9) g/dL Hct 41.3 38.0 37.9 (37.5-50.1) % Plt Count 199 191 180 (140-400) K/mcL Neutrophils # 6.2 8.1 8.2 (1.6-8.9) K/mcL BMP 08/08/18 08/08/18 08/09/18 16:41 22:20 03:10 Sodium 138 138 138 Potassium 3.9 3.8 3.8 Chloride 104 107 107 Carbon Dioxide 27 24 25 BUN 6 8 9 Creatinine 1.01 0.87 0.85 Glucose 71 118 H 121 H Calcium 9.5 8.2 L 7.9 L Cardiac Enzymes 08/08/18 08/08/18 08/09/18 Range/Units 16:41 22:20 04:15 Troponin I < 0.03 < 0.03 0.06 H* (< 0.04) ng/mL 08/09/18 Range/Units 10:22 Troponin I 0.10 H* (< 0.04) ng/mL Liver Function 08/09/18 Range/Units 03:10 Total Bilirubin 0.5 (0.3-1.0) mg/dL AST 16 (13-39) Units/L ALT 11 (7-52) Units/L Alkaline Phosphatase 56 (34-104) Units/L Albumin 3.5 (3.5-5.7) g/dL - ABG Interpretation ABG results: PT/INR, D-dimer PT 11.8 Seconds (9.4-12.1) 08/09/18 03:10 - Impressions Impressions Chest X-Ray 08/08/18 16:16 IMPRESSION: Reticulonodular opacifications noted in both lungs. This may represent interstitial lung disease or possibly an atypical pneumonia. Otherwise, no acute abnormalities seen in the chest D/ / Víctor Morales MD / Víctor Morales MD Interpreting Provider: Víctor Morales MD Echocardiogram 08/09/18 07:57 Impressions: LVEF 60%. Normal LV chamber size, wall thickness and function. Normal left ventricular diastolic function. Normal right ventricular structure and function. Mild aortic regurgitation. No evidence of pulmonary hypertension. Left Ventricular Wall Motion: Rest Echo Findings All wall segments showed normal motion. Findings: Study Quality * Technically adequate exam. ECG Findings * Sinus bradycardia. Left Ventricle * LVEF 60%. * Normal LV chamber size, wall thickness and function. * Normal left ventricular diastolic function. Right Ventricle * Normal right ventricular structure and function. Left Atrium * Normal left atrial size. Right Atrium * Normal right atrial size. Interatrial Septum * PFO with right to left shunt. Aortic Valve * Trileaflet aortic valve. * No aortic stenosis. * Normal aortic valve structure. * Mild aortic regurgitation. Mitral Valve * Normal mitral valve structure. * No mitral regurgitation. * No mitral stenosis. Tricuspid Valve * Normal tricuspid valve structure. * No tricuspid stenosis. * Trace tricuspid regurgitation. * No evidence of pulmonary hypertension. Pulmonic Valve * No pulmonic regurgitation. * Pulmonic valve not well visualized. Aorta * Normally sized aortic root. Pericardium * The pericardium appears normal. IVC * Normal IVC dimensions and inspiratory collapse. Consult Discharge Plan - Plan Referrals: NONE,PCP [Primary Care Provider] - (1) Hypotension Qualifiers: Hypotension type: unspecified hypotension type Qualified Code(s): I95.9 - Hypotension, unspecified (3) CAD (coronary artery disease) Qualifiers: Coronary Disease-Associated Artery/Lesion type: [place] artery [place] vs. transplanted heart: [place] heart Associated angina: angina presence unspecified Qualified Code(s): I25.10 - Atherosclerotic heart disease of [place] coronary artery without angina pectoris
[2018-08-09] MEDS: OXYCODONE Oral CONC 10 MG/0.5 ML ORAL.SYG SL PRN ×2 (12:59→18:29)
[2018-08-09] MEDS ORDERED: Azithromycin 500 MG in D5% in Water 250 ML IVPB SCH ×2 (13:00)
--- NOTE | 2018-08-09 14:07 | Event Note ---
Date of Encounter: 08/09/18 Time of Encounter: 14:06 - Cardiology Event Note C report finalized. Moderate 2V CAD. The LMCA is angiographically free of disease. 25% stenosis in the Mid LAD. There is a 60% stenosis in the 1st Diagonal. The Circumflex is angiographically free of disease. The 1st Marginal is angiographically free of disease. There is a 65% stenosis in the Proximal RCA. The lesion has a BRIDGET flow of 3. TTE EF preserved, normal RV, mild AR. Discussed and reviewed with Dr. Galvan. Cardiology will sign off, as this was not a true STEMI, no intervention on [facility] and EF is preserved on TTE. Reconsult PRN. Will coordinate outpt follow-up.
[2018-08-09] MEDS: Azithromycin 500 MG in D5% in Water 250 ML IVPB SCH (14:11)
[2018-08-09] MEDS: 0.9 % Sodium Chloride 1,000 ML IVC SCH ×2 (15:44→23:22)
[2018-08-09] MEDS: *HR* Heparin 5,000 UNIT/ML VIAL SQ SCH (18:28)
[2018-08-09] MEDS: Gabapentin 400 MG CAPSULE PO SCH (20:01)
[2018-08-09] MEDS: *HR* Morphine Sulfate SR (12 HR) 15 MG TABLET.ER PO SCH (20:02)
[2018-08-10 03:38] LABS: Bilirubin,Urine Negative (Negative); Blood,Urine Negative (Negative); Clarity,Urine Clear (Clear); Color,Urine Yellow (Yellow); Glucose,Urine (UA) Normal (Normal); Ketones,Urine Negative (Negative); Leukocyte Esterase,Urine Negative (Negative); Nitrite,Urine Negative (Negative); Protein,Urine Negative (Neg-Trace); Specific Gravity,Urine < 1.005 (1.010-1.025); Urobilinogen,Urine Normal (Normal)
[2018-08-10] MEDS: Nicotine 21 MG PATCH.TD24 TD SCH (03:43)
[2018-08-10] MEDS: *HR* Heparin 5,000 UNIT/ML VIAL SQ SCH (05:32)
[2018-08-10] MEDS: OXYCODONE Oral CONC 10 MG/0.5 ML ORAL.SYG SL PRN ×2 (05:58→12:10)
[2018-08-10 05:59] LABS: Basophils # 0.1 K/mcL (0.0-0.2); Basophils % 1.5 %; Eosinophils # 0.3 K/mcL (0.0-0.6); Eosinophils % 4.4 %; Hemoglobin 12.1 g/dL (12.9-16.9); Immature Granulocytes % 0.3 % (0-4); Lymphocytes % 29.9 %; Mean Corpuscular HGB Conc 34.6 g/dL (31.6-35.5); Mean Corpuscular Volume 86.6 fL (83.0-100.0); Mean Platelet Volume 11.6 fL (9.4-12.4); Monocytes # 0.6 K/mcL (0.0-1.3); Monocytes % 9.6 %; Neutrophils # 3.6 K/mcL (1.6-8.9); Platelet Count 154 K/mcL (140-400); Red Blood Count 4.04 M/mcL (4.19-5.50); Red Cell Distribution Width 13.8 % (11.5-14.5); Segmented Neutrophils % 54.3 %
[2018-08-10 06:11] LABS: BUN/Creatinine Ratio 12 (6-26); Blood Urea Nitrogen 10 mg/dL (6-20); Calcium 8.1 mg/dL (8.6-10.3); Carbon Dioxide 25 mEq/L (23-29); Chloride 114 mEq/L (98-107); Glucose 103 mg/dL (70-105); Osmolality,Calculated 291 (280-300); Potassium 3.9 mEq/L (3.5-5.1); Sodium 141 mEq/L (136-145); eGFR For Non-African Americans > 60 (> 60)
[2018-08-10] MEDS: Gabapentin 400 MG CAPSULE PO SCH (08:47)
[2018-08-10] MEDS: Aspirin Enteric Coated 81 MG Tablet PO SCH (08:47)
[2018-08-10] MEDS: *HR* Morphine Sulfate SR (12 HR) 15 MG TABLET.ER PO SCH (08:47)
[2018-08-10] MEDS: 0.9 % Sodium Chloride 1,000 ML IVC SCH (09:00)
[2018-08-10] MEDS: Azithromycin 500 MG in D5% in Water 250 ML IVPB SCH (12:10)
[2018-08-10 12:20] VITALS: BP 124/76
--- NOTE | 2018-08-10 13:48 | Discharge Summary ---
- NOTES TO OUTPATIENT PROVIDER Notes to Outpatient Provider: Chest pain for which heart cath did not show infarct, and of note patient ran out of chronic narcotics Orders not resulted at time of discharge: Pending orders 08/09/18 13:53 Culture,Blood [BC] Routine Date of Encounter: 08/10/18 Time of Encounter: 13:46 - Discharge Diagnosis (1) Chest pain Priority: Primary Status: Acute Qualifiers: Chest pain type: unspecified Qualified Code(s): R07.9 - Chest pain, unspecified Hospital course: Mr. Bowers is a 58 year old male w hx jaw bone CA, smoker, who presented at time of admission with right-sided Chest Pain radiating to neck. Intial troponin was negative, but EKG showed ST elevations in inferior leads. Cardio Dr Hobson took patient to school laboratory technician, which showed RCA lesion with 65-70% occlusion, no stent placed. Post-procedurally, pt developed hypotension into systolic 50s and b radycardia, for which he was given atropine, fluids, and started on dopamine infusion. His pressures improved significantly and he was weaned off dopamine shortly after it was started. Repeat EKG showed no significant changes from prior. CXR did show concern for ILD v atypical infectious process for which azithro was started. 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 Follow up: PCP and Cardio, will also make local pain management referral Med changes: new ASA 81 and Lipitor 40 daily, new short course azithromycin, advised pt to d/c morphine IR and attempt self wean off MS-contin Code: full code Mental status: awake, fully oriented - Time Spent with Patient Total time spent providing and/or coordinating discharge services: Greater than 30 minutes - Discharge Medications Prescriptions: Aspirin Enteric Coated [Aspirin EC] 81 mg PO DAILY #30 tablet. Atorvastatin [Lipitor] 40 mg PO HS #30 tablet Azithromycin [Azithromycin 6-Tab Pack] 250 mg PO PER PKG DI #6 tab Home Medications: Gabapentin 800 mg PO BID 08/09/18 [History] Morphine Sulfate [Arymo ER] 15 mg PO BID 08/09/18 [History] Sertraline [Zoloft] 50 mg PO DAILY 08/09/18 [History] Aspirin Enteric Coated [Aspirin EC] 81 mg PO DAILY #30 tablet. 08/10/18 [Rx] Atorvastatin [Lipitor] 40 mg PO HS #30 tablet 08/10/18 [Rx] Azithromycin [Azithromycin 6-Tab Pack] 250 mg PO PER PKG DI #6 tab 08/10/18 [Rx] Allergies/Adverse Reactions: Allergy/AdvReac Type Severity Reaction Status Date / Time No Known Allergies Allergy Verified 08/08/18 16:43 Date of admission: 08/09/18 12:46 Primary care physician: PCP NONE Consults: 08/09/18 07:57 Consult to Cardiology [CONS] Routine Comment: Consulting Provider: Cardiology Krysten Reason for Consult: hypotension post LHC, 65-70% RCA lesion without PCI Call Completed: No - Constitutional Vitals: Temp Pulse Resp BP Pulse Ox 98.2 F 67 18 124/76 97 08/10/18 10:57 08/10/18 12:00 08/10/18 12:00 08/10/18 12:00 08/10/18 12:00 Exam: General: Alert and oriented, not in acute distress. Cardiovascular:Normal S1 & S2, No JVD. Pulse regular. Lungs: diminished breath sound, no wheeze or crackles Abdomen:Soft, non-tender Extremities:No deformity or swelling Neurological:Normal cognition and motor skills. Non-focal - Patient Status Disposition: Home, Self-Care Condition: Fair Functional capacity at discharge: independent ambulation Overall status at discharge: patient is progressing back to baseline - Discharge Instructions Follow Up With: NONE,PCP [Primary Care Provider] - Durga Geiger DO [Partnered Physician] - (chronic narcotics, fired from [employer], appt as able in next 1-2 months?) - Diet and Activity Activity: resume usual activities as tolerated Diet: advance to your usual diet
--- NOTE | 2018-08-10 22:04 | Electrocardiograph Report ---
[address] [place], [place] [address] Test Date: 2018-08-08 Pat Name: Lseter Bowers Department: [id number] Room: [facility] Gender: M Medical Billing Representative: : 1960 Requested By: Layla Kim Order Number: [id number] Reading MD: Jn Downing Measurements Intervals [place] Rate: 67 P: 61 MI: 130 QRS: 65 QRSD: 83 T: 62 QT: 393 QTc: 415 Interpretive Statements Sinus rhythm ST elevation, consider inferior injury or evolving myocardial infarction Recommend serial ECG every 15 mintues Electronically Signed On 08-10-2018 22:02:50 EST by Jn Downing
== END 2018-08-10 15:39 | disposition home or self-care (01) | DRG 282 ==
LOC: EMEROOARM 15:50 → ICNU 17:10 → SUATTDRO 18:43 → INTOOBSV 18:43 → ICNU 18:43 → SUATTDRO 08-09 12:46
PROVIDERS: ADMIT Internal Medicine Cardiovascular Disease; ATTEND Internal Medicine